=== PATIENT | female | born 1960 | race Caucasian/White ===

== ENCOUNTER 2019-07-22 08:18 | Day surgery (SDC) | payer OTHER, MEDICARE, MEDICAID ==
[~2019-07-22] VITALS: Ht 149.9 cm; Wt 87.5 kg
[~2019-07-22 08:18] MED LIST: RINGERS SOLUTION,LACTATED 1,000 ML IV ONE
[2019-07-22] MEDS ORDERED: ROCURONIUM BROMIDE 10 MG/ML 5 ML VIAL IVP ONE (08:19)
[2019-07-22] MEDS ORDERED: LIDOCAINE/PF 2% 5 ML SYRINGE IVP ONE (08:19)
[2019-07-22] MEDS ORDERED: GLYCOPYRROLATE 0.2 MG/ML VIAL IM ONE (08:19)
[2019-07-22] MEDS ORDERED: NEOSTIGMINE METHYLSULFATE 1 MG/ML 10 ML VIAL IVP ONE (08:19)
[2019-07-22] MEDS ORDERED: KETAMINE HCL 50 MG/ML 10 ML VIAL IVP ONE (08:19)
[2019-07-22] MEDS ORDERED: FentaNYL CITRATE-PF 100 MCG/2 ML VIAL IVP ONE (08:19)
[2019-07-22] MEDS ORDERED: ONDANSETRON HCL 4 MG/2 ML VIAL IVP ONE (08:19)
[2019-07-22] MEDS ORDERED: PROPOFOL 1% 20 ML VIAL IVP ONE (08:19)
[2019-07-22] MEDS ORDERED: QUET300T2 PO (08:41)
[2019-07-22] MEDS ORDERED: DIVA-76 PO (08:41)
[2019-07-22] MEDS ORDERED: TRAZ-220 PO (08:41)
[2019-07-22] MEDS ORDERED: BUSP10TA23 PO (08:41)
[2019-07-22] MEDS ORDERED: LEVO200 PO (08:41)
[2019-07-22] MEDS ORDERED: AMPICILLIN SODIUM 1 GM/VIAL ONE (09:45)
[2019-07-22] MEDS ORDERED: MIDAZOLAM HCL 5 MG/ML VIAL ONE (10:50)
[2019-07-22 11:19] LABS: BAND NEUTROPHILS % (MANUAL) 0 % (0-5)
[2019-07-22 11:31] LABS: ANION GAP 8 mmol/L (8-16); CALCIUM, TOTAL 9.3 mg/dL (8.8-10.5); CARBON DIOXIDE 29 mmol/L (22-29); CHLORIDE 98 mmol/L (98-107); CREATININE 0.93 mg/dL (0.60-1.30); GLOMERULAR FILTR. RATE CALC > 60 mL/min (>60); GLUCOSE,RANDOM 95 mg/dL (70-110); POTASSIUM 4.1 mmol/L (3.5-5.1); SODIUM SERUM 135 mmol/L (136-145); UREA NITROGEN, BLOOD 11 mg/dL (7-18)
[2019-07-22 11:34] LABS: HEMATOCRIT 41.4 % (36-46); HEMOGLOBIN 13.4 g/dL (12.0-16.0); MEAN CORPUSCULAR HEMOGLOBIN 30.4 pg (26.0-34.0); MEAN CORPUSCULAR HGB CONC 32.3 G/dL (31.0-37.0); MEAN CORPUSCULAR VOLUME 94 fL (80-100); PLATELET COUNT (AUTO) 258 K/uL (150-450); RED BLOOD CELL COUNT(AUTO) 4.41 MIL/uL (4.00-5.20); RED CELL DISTRIBUTION WIDTH 15.7 % (11.5-14.5)
[2019-07-22 11:37] LABS: ALANINE AMINOTRANSFERASE 14 U/L (12-78); ALBUMIN 3.2 g/dL (3.4-5.0); ALKALINE PHOSPHATASE 75 U/L (46-116); ASPARTATE AMINOTRANSFERASE 19 U/L (15-37); BILIRUBIN,TOTAL 0.4 mg/dL (0.1-1.0); PROTHROMBIN TIME 10.1 SEC (9.4-11.6); TOTAL PROTEIN, SERUM 8.5 g/dL (6.4-8.2)
[2019-07-22 12:28] LABS: BASOPHILS % (MANUAL) 2 % (0-2); EOSINOPHILS % (MANUAL) 4 % (1-6); LYMPHOCYTES % (MANUAL) 17 % (22-44); MONOCYTES % (MANUAL) 10 % (2-9); SEGMENTED NEUTROPHILS % 67 % (40-70)
[2019-07-22] MEDS ORDERED: RINGERS SOLUTION,LACTATED 1,000 ML IV ONE (12:58)
== END 2019-07-22 14:10 | disposition home or self-care (01) ==
LOC: SURGERY 08:18
PROVIDERS: ATTEND Dentist General Practice
DX: K05.30 Chronic periodontitis, unspecified (principal); J44.9 Chronic obstructive pulmonary disease, unspecified; F41.9 Anxiety disorder, unspecified; E66.9 Obesity, unspecified; E03.9 Hypothyroidism, unspecified; M19.90 Unspecified osteoarthritis, unspecified site; G30.9 Alzheimer's disease, unspecified; F02.80 Dementia in other diseases classified elsewhere, unspecified severity, without behavioral disturbance, psychotic disturbance, mood disturbance, and anxiety; Q90.9 Down syndrome, unspecified; J30.2 Other seasonal allergic rhinitis; F71 Moderate intellectual disabilities; Z79.899 Other long term (current) drug therapy; Z79.01 Long term (current) use of anticoagulants; Z98.890 Other specified postprocedural states
CPT/HCPCS: 36415; 41899; 71045; 80053; 85007; 85027; 85610; 85730; 93005; J0290; J2250; J2405; J2704; J3010; J3490 ×4; J7120